=== PATIENT | female | born 1970 | race Caucasian/White ===

== ENCOUNTER 2017-10-20 19:03 | Emergency (ER) | payer SELFPAY ==
[~2017-10-20] VITALS: Ht 175.3 cm; Wt 60.0 kg
[2017-10-20 19:25] VITALS: BP 124/76; PULSE 114; RESP 18; TEMP 99.2; O2SAT 100
--- NOTE | 2017-10-20 20:10 | RADRPT ---
EXAM DATE/TIME: 10/20/2017 19:51 [facility] COMPARISON: No previous studies available for comparison. INDICATIONS : Cough, shortness of breath, some left sided chest pains and fever. MEDICAL HISTORY : None. SURGICAL HISTORY : None. ENCOUNTER: Initial ACUITY: 2 weeks PAIN SCORE: 3/10 LOCATION: Left chest FINDINGS: PA and lateral views of the chest demonstrate a normal-sized cardiac silhouette. There is no effusion , consolidation, or pneumothorax. The bones and soft tissues demonstrate no acute abnormality. There is levoscoliosis of the thoracic and lumbar spine. CONCLUSION: No acute cardiopulmonary abnormality is identified. Dragan Oliver MD on October 20, 2017 at 20:07 Board Certified Radiologist. This report was verified electronically.
--- NOTE | 2017-10-20 20:54 | PD ---
HPI Chief Complaint: Cold / Flu Symptoms Time Seen by Provider: 20:54 Travel History International Travel<30 days: No Contact w/Intl Traveler<30days: No Traveled to known affect area: No History of Present Illness HPI 47-year-old female came to the emergency room with history of 2 weeks of cough and on and off fever. Patient says that she felt like she was getting better until she started coughing again. She is bringing out clear mucus. Patient is a smoker. As per her she is taking inhaler but it does not help. She had a fever yesterday. Currently she is afebrile in triage. Patient was tachycardic in triage but when I are on the monitor her heart rate was 87 bpm and saturating 99% on room air. There was a chest x-ray done from triage prior to her coming to the emergency room. [facility] Past Medical History Narrative Medical List of her past medical, surgical, social and family history reviewed from the nursing note. ?: Not Social History Tobacco Use: Yes Allergies-Medications Comments Awaiting for the nurse to put in the allergies Narrative Medication Awaiting for the nurse to do the med reconciliation. Review of Systems Except as stated in HPI: all other systems reviewed are Neg General / Constitutional: Positive: Fever Respiratory: Positive: Cough Physical Exam Narrative GENERAL: Awake, alert, disheveled, no obvious distress, smells strongly of nicotine SKIN: Focused skin assessment warm/dry. HEAD: Atraumatic. Normocephalic. EYES: Pupils equal and round. No scleral icterus. No injection or drainage. ENT: No nasal bleeding or discharge. Mucous membranes pink and moist. NECK: Trachea midline. No JVD. CARDIOVASCULAR: Regular rate and rhythm. No murmur appreciated. RESPIRATORY: No accessory muscle use. Clear to auscultation. Breath sounds equal bilaterally. GASTROINTESTINAL: Abdomen soft, non-tender, nondistended. Hepatic and splenic margins not palpable. MUSCULOSKELETAL: No obvious deformities. No clubbing. No cyanosis. No edema. NEUROLOGICAL: Awake and alert. No obvious cranial nerve deficits. Motor grossly within normal limits. Normal speech. PSYCHIATRIC: Appropriate mood and affect; insight and judgment normal. Data Data Last Documented VS Vital Signs Date Time Temp Pulse Resp B/P (MAP) Pulse Ox O2 Delivery O2 Flow Rate FiO2 10/20/17 19:25 99.2 114 18 124/76 (92) 100 Room Air Orders Orders Chest, Pa & Lat (10/20/17 19:35) Ed Discharge Order (10/20/17 21:00) [facility] Medical Decision Making Medical Screen Exam Complete: Yes Emergency Medical Condition: Yes Medical Record Reviewed: Yes Differential Diagnosis Pneumonia, bronchitis, viral illness Narrative Course 9:04 PM chest x-ray was read to be unremarkable by the radiologist. I explained to the patient that her vital signs were within normal limits and the fact that she was not coughing up greenish sputum or had any abnormalities on her chest x-ray and with clear lung exam there was no antibiotic or medication that could be given. This is probably a viral infection. She does however need to quit smoking in order to feel better. At this point patient got very agitated and said that she does not smoke that much. She did not understand why I did not examine her sinuses. 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 She said she would leave and go to [place]. However patient would be discharged and she is entitled to a second opinion. Procedures EKG Prior to Arrival: No Diagnosis Primary Impression: Viral illness Additional Impressions: Chronic cough Needs smoking cessation education Referrals: [facility] Additional Instructions: You need to quit smoking in order to feel better. Use your inhaler 2 puffs every 4-6 hours until symptoms get better. You can take Tylenol/Motrin/ ibuprofen/Advil for your fever hand or pain Med/Other Pt SpecificInfo: No Change to Meds Disposition: 01 DISCHARGE HOME Condition: Stable Catherine Berry MD Oct 20, 2017 20:54
== END 2017-10-20 21:12 | disposition home or self-care (01) ==
LOC: NEPD 19:03
DX: B34.9 Viral infection, unspecified (principal); R05 Cough
CPT/HCPCS: 71046; 99283

== ENCOUNTER 2017-11-02 00:51 | Emergency (ER) | payer SELFPAY ==
[~2017-11-02] VITALS: Ht 175.3 cm; Wt 59.0 kg
[2017-11-02 00:56] VITALS: BP 127/57; PULSE 119; RESP 16; TEMP 99.5; O2SAT 95
--- NOTE | 2017-11-02 01:37 | PD ---
HPI . foot pain Chief Complaint: Numbness/Tingling Time Seen by Provider: 01:07 Travel History International Travel<30 days: No Contact w/Intl Traveler<30days: No Traveled to known affect area: No History of Present Illness HPI Patient is a 47-year-old female who said that today she woke up and her foot was weak her left hand was weak she stumbled and tripped and twisted her left ankle and now she has swelling to her left ankle and then she reports she fell in her bathroom and hit her right side of her sabianism area on the bathtub she denies LOC she is awake alert she is complaining that her left wrist is weak her left ankle is swollen and right orbit area is injured from a fall in her bathroom tonight she did not take anything for the pain she says she cannot take Motrin it makes her bloated and urinary retention she took Tylenol much earlier but it did not help no vomit no ataxia PFSH Past Medical History Medical History: Denies Significant Hx Tetanus Vaccination: < 5 Years Influenza Vaccination: No ?: Not Tubal Ligation: Yes Past Surgical History Other Surgery: Yes ( Ablation 2004) Social History Alcohol Use: No Tobacco Use: Yes (1.5 PPD) Substance Use: No Allergies-Medications (Allergen,Severity, Reaction): Coded Allergies: codeine (Verified Allergy, Severe, 11/02/17) nitrofurantoin (Verified Allergy, Unknown, 11/02/17) Reported Meds & Prescriptions Reported Meds & Active Scripts Active No Active Prescriptions or Reported Medications Review of Systems Except as stated in HPI: all other systems reviewed are Neg Physical Exam Narrative GENERAL: Patient seems very tired and a wandering story she gives me an HPI of how she fell hit her face in the bathtub and her ankle is swollen from a fall as well SKIN: Warm and dry. HEAD: Atraumatic. Normocephalic. EYES: Pupils equal and round. No scleral icterus. No injection or drainage. ENT: No nasal bleeding or discharge. Mucous membranes pink and moist. NECK: Trachea midline. No JVD. CARDIOVASCULAR: Regular rate and rhythm. RESPIRATORY: No accessory muscle use. Clear to auscultation. Breath sounds equal bilaterally. GASTROINTESTINAL: Abdomen soft, non-tender, nondistended. Hepatic and splenic margins not palpable. MUSCULOSKELETAL: Extremities left ankle lateral malleolar mild swelling No obvious deformities. She complains that she cannot completely extend her left wrist however when I distract her and talk about the synovial cyst on her wrist she moves her wrist with no problem at all NEUROLOGICAL: Awake and. Slightly somnolent PSYCHIATRIC: Appropriate mood and affect Data Data Last Documented VS Vital Signs Date Time Temp Pulse Resp B/P (MAP) Pulse Ox O2 Delivery O2 Flow Rate FiO2 11/02/17 00:56 99.5 119 16 127/57 (80) [address] Brain W/O Iv Contrast(Rout) (11/02/17 ) Ankle, Complete ([id number]) (11/02/17 ) Ct Orbits W/O Iv Contrast (11/02/17 ) Sanjeev Bandage (11/02/17 02:51) Ed Discharge Order (11/02/17 03:02) MDM Medical Decision Making Medical Screen Exam Complete: Yes Emergency Medical Condition: Yes Differential Diagnosis Sprain versus ligamentous injury versus contusion versus fracture syncope versus mechanical fall versus intoxication Narrative Course Patient CT of head no injury patient's ankle x-ray there is no fracture patient is given a postop shoe and discharged to follow-up as an outpatient Diagnosis Primary Impression: Contusion, ankle Qualified Codes: S90.02XA - Contusion of left ankle, initial encounter Patient Instructions: Contusion in Adults (ED), General Instructions Scripts No Active Prescriptions or Reported Meds Disposition: 01 DISCHARGE HOME Condition: Jakub Gordon MD November 02, 2017 01:37
--- NOTE | 2017-11-02 01:59 | RADRPT ---
EXAM DATE/TIME: 11/02/2017 01:37 [facility] COMPARISON: No previous studies available for comparison. INDICATIONS : Trauma, fall. Hit right side of head. RADIATION DOSE: 45.79 CTDIvol (mGy) MEDICAL HISTORY : None SURGICAL HISTORY : Tubal ligation. ENCOUNTER: Initial ACUITY: 1 day PAIN SCALE: 7/10 LOCATION: Right cranial TECHNIQUE: Multiple contiguous axial images were obtained of the head. Using automated exposure control and adj ustment of the mA and/or kV according to patient size, radiation dose was kept as low as reasonably a chievable to obtain optimal diagnostic quality images. DICOM format image data is available electro nically for review and comparison. FINDINGS: CEREBRUM: The ventricles are normal for age. No evidence of midline shift, mass lesion, hemorrhage or acute in farction. No extra-axial fluid collections are seen. POSTERIOR FOSSA: The cerebellum and brainstem are intact. The 4th ventricle is midline. The cerebellopontine angle i s unremarkable. EXTRACRANIAL: The visualized portion of the orbits is intact. SKULL: The calvaria is intact. No evidence of skull fracture. CONCLUSION: Normal examination. Dragan Howe MD on November 02, 2017 at 1:56 Board Certified Radiologist. This report was verified electronically.
--- NOTE | 2017-11-02 02:13 | RADRPT ---
EXAM DATE/TIME: 11/02/2017 01:37 [facility] COMPARISON: No previous studies available for comparison. INDICATIONS : Trauma, fall. Swelling to right orbit. RADIATION DOSE: 14.93 CTDIvol (mGy) MEDICAL HISTORY : None SURGICAL HISTORY : Tubal ligation. ENCOUNTER: Initial ACUITY: 1 day PAIN SCORE: 7/10 LOCATION: Right orbit. TECHNIQUE: Volumetric scanning of the orbits was performed. Using automated exposure control and adjustment of the mA and/or kV according to patient size, radiation dose was kept as low as reasonably achievable t o obtain optimal diagnostic quality images. DICOM format image data is available electronically for review and comparison. FINDINGS: PRESEPTAL: The preseptal soft tissues are normal thickness. GLOBES: Normal shape without wall thickening. The lens is grossly intact. EXTRAOCULAR MUSCLES: Symmetric and normal thickness. ORBITAL ENRIQUE: Intact. The greater wing of the sphenoid is intact. OPTIC NERVES: Normal size. The optic canal is not enlarged. The retroconal fat is normal in appearance. LACRIMAL GLANDS: No evidence of mass. RETROAPIACL REGION: The optic chiasm is grossly intact. The visualized portion of the cavernous sinus and brainstem is i ntact. CONCLUSION: Normal examination. Dragan Howe MD on November 02, 2017 at 2:09 Board Certified Radiologist. This report was verified electronically.
--- NOTE | 2017-11-02 02:14 | RADRPT ---
EXAM DATE/TIME: 11/02/2017 01:51 [facility] COMPARISON: No previous studies available for comparison. INDICATIONS : Patient states she rolled her ankle 3 times today MEDICAL HISTORY : None. SURGICAL HISTORY : None. ENCOUNTER: Initial ACUITY: 1 day PAIN SCORE: 8/10 LOCATION: Left entire ankle FINDINGS: Three view exam was performed of the left ankle. The bony structures are in normal alignment. No ev idence of fracture, dislocation. Moderate lateral soft tissue swelling.. The ankle mortise is intact . No radiopaque foreign bodies are seen. Bony mineralization is normal. CONCLUSION: Soft tissue swelling. No acute bony injury Dragan Howe MD on November 02, 2017 at 2:11 Board Certified Radiologist. This report was verified electronically.
== END 2017-11-02 06:09 | disposition home or self-care (01) ==
LOC: NEPC 00:51
DX: S90.02XA Contusion of left ankle, initial encounter (principal); S09.90XA Unspecified injury of head, initial encounter; W01.198A Fall on same level from slipping, tripping and stumbling with subsequent striking against other object, initial encounter; F17.200 Nicotine dependence, unspecified, uncomplicated
CPT/HCPCS: 70450; 70480; 73610